=== PATIENT | male | born 1985 | race Caucasian/White ===

== ENCOUNTER 2017-01-17 12:05 | Emergency (ER) | payer BC, OTHER ==
[~2017-01-17] VITALS: Ht 188 cm; Wt 110.4 kg
[2017-01-17] MEDS ORDERED: fentaNYL PF 100 MCG/2 ML VIAL IV ONE (12:45)
[2017-01-17 13:00] VITALS: BP 170/80
[2017-01-17] MEDS ORDERED: IOHEXOL 300 MG/ML 75 ML VIAL. IV ONE (13:00)
[2017-01-17] MEDS ORDERED: IOHEXOL 240 MG/ML 50ML VIAL. PO ONE (13:00)
[2017-01-17 13:10] LABS: ALBUMIN 4.2 g/dL (3.4-5.0); ALBUMIN/GLOBULIN RATIO 1.6 (1.0-1.7); CALCIUM 8.7 mg/dL (8.5-10.1); GFR 88.3; POTASSIUM 4.1 mmol/L (3.5-5.1); TOTAL BILIRUBIN 0.5 mg/dL (0.2-1.0); TOTAL PROTEIN 6.9 g/dL (6.4-8.2)
[2017-01-17 13:22] LABS: BASO # 0.1 x10^3/uL (0.0-0.2); BASO % 1 % (0-3); EOS # 0.7 x10^3/uL (0.0-0.7); EOS % 9 % (0-3); HEMATOCRIT 44.3 % (39.0-53.0); HEMOGLOBIN 15.4 g/dL (13.0-17.5); LYMPH # 2.4 x10^3/uL (1.0-4.8); LYMPH % 29 % (24-48); MEAN CORPUSCULAR HEMOGLOBIN 31 pg (25-35); MEAN CORPUSCULAR HGB CONC 35 g/dL (31-37); MEAN CORPUSCULAR VOLUME 88 fL (79-100); MONO # 0.7 x10^3/uL (0.0-1.1); MONO % 8 % (0-9); NEUT # 4.6 x10^3uL (1.8-7.7); NEUT % 54 % (31-73); PLATELET COUNT 181 x10^3/uL (140-400); RED BLOOD COUNT 5.01 x10^6/uL (4.30-5.70); WHITE BLOOD COUNT 8.5 x10^3/uL (4.0-11.0)
--- NOTE | 2017-01-17 13:23 | PHYS DOC ---
Past History Past Medical History: Anxiety Past Surgical History: Tonsillectomy, Other Additional Smoking Information: CHEWING TOBACCO Alcohol Use: Occasionally Drug Use: None Adult General Chief Complaint Chief Complaint: GROIN PAIN HPI HPI Patient is a 31-year-old male who presents with right testicle, epididymitis, groin, and right lower quadrant pain for about 2 days. The patient saw his doctor and was prescribed antibiotics and anti-inflammatory pain relievers. The pain is not getting better, is getting worse. 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 Patient had a similar episode about 4 or 5 years ago, he was at the [facility] in [place] at that time. He was seen at the ER, they did a CT scan and some other testing. He was told he had a torn or inflamed muscle in his abdominal wall. He also had initially been prescribed antibiotics and anti- inflammatories for a possible epididymitis but that time his pain and symptoms also worsened and that's why he ended up in the ER at that time. Patient denies fever or chills. He has not had GI symptoms. His pain is getting worse and he is having trouble with doing his job due to the pain today. He drove himself here but his fiance is coming to the ED. Review of Systems Review of Systems Constitutional: Denies fever or chills [] Respiratory: Denies cough or shortness of breath [] Cardiovascular: Denies chest pain GI: As in history of present illness : Denies dysuria or hematuria [] Current Medications Current Medications Current Medications Medications (Trade) Dose Ordered Sig/Bill Start Time Stop Time Status Last Admin Dose Admin Fentanyl Citrate (Fentanyl 2ml Vial) 100 mcg 1X ONCE 01/17/17 12:45 01/17/17 12:46 DC 01/17/17 12:54 100 MCG Iohexol (Omnipaque 240 Mg/ml) 30 ml 1X ONCE 01/17/17 13:00 01/17/17 13:01 DC Iohexol (Omnipaque 300 Mg/ml) 75 ml 1X ONCE 01/17/17 13:00 01/17/17 13:01 DC Allergies Allergies Allergies Coded Allergies Type Severity Reaction Last Updated Verified No Known Drug Allergies 10/03/16 No Physical Exam Physical Exam Constitutional: Well developed, well nourished, no acute distress, non-toxic appearance. Alert, mentating normally, does appear uncomfortable when he moves around or walks. HENT: Normocephalic, atraumatic, bilateral external ears normal, nose normal. [] Eyes: conjunctiva normal, no discharge. [] Neck: Normal range of motion, no stridor. [] Abdomen: Bowel sounds normal, soft, no masses, no pulsatile masses. Right lower quadrant abdominal tenderness is present at McBurney's point. No rebound or guarding. No left lower quadrant abdominal tenderness. Mild tenderness to palpation in the right inguinal area without masses, lymphadenopathy or other abnormality. : Normal circumcised penis. Scrotum and testicles appear normal. The right testes is mildly tender to palpation, not swollen but it may be slightly more firm than the left. The right epididymis is tender to palpation but is not swollen. No increase in pain with elevation of the right testicle. Right testicle is lower than the left. No clinical evidence of epididymitis in terms of swelling or "double bubble" Skin: Warm, dry, no erythema, no rash. [] Extremities: No tenderness, no cyanosis, no clubbing, ROM intact, no edema. [] Neurologic: Alert and oriented X 3, normal motor function, normal sensory function, no focal deficits noted. [] Current Patient Data Vital Signs Vital Signs Date Time Temp Pulse Resp B/P (MAP) Pulse Ox O2 Delivery O2 Flow Rate FiO2 01/17/17 13:00 83 20 170/80 (110) 97 01/17/17 12:54 Room Air 01/17/17 12:18 97.6 EKG EKG [] Radiology/Procedures Radiology/Procedures REASON: rlq pain PROCEDURE: CT ABD PELV W/ORAL&IV CONTRAST Indication right lower quadrant pain for 2 days. Axial images through the abdomen and pelvis were obtained. Both IV and oral contrast were administered. 75 cc of Omnipaque 300 was administered intravenously. No prior imaging of the abdomen or pelvis is available. The lung bases are clear. The liver and spleen appear unremarkable and the gallbladder appears grossly normal. No adrenal or renal pathology is seen and the pancreas appears unremarkable. No mass inflammatory process or acute finding within the abdomen is seen. The appendix is seen in the right lower quadrant and is at the upper limits of normal in size but no periappendiceal stranding is seen. The mild enlargement is probably incidental. If symptoms persist and appendicitis remains strongly clinically suspect a follow-up scan may be necessary.. No acute or definite significant finding in the pelvis is seen. IMPRESSION: No definite acute finding seen in the abdomen or pelvis. Appendix at the upper limits of normal in size but no definite signs suggesting appendicitis seen. See above discussion [] Course & Med Decision Making Course & Med Decision Making Pertinent Labs and Imaging studies reviewed. (See chart for details) 31-year-old male presents with a 2 day history of right testicle, epididymitis, inguinal/groin, and right lower quadrant pain. He has no history of appendicitis , hernia surgery, or testicular surgery. He does have a history of a similar episode about 4 or 5 years ago which apparently eventually resolved, was thought to be an inflamed or torn abdominal wall muscle. It was also initially treated with antibiotics for potential epididymitis. He was started on antibiotics by his PCP for epididymitis 2 or 3 days ago but is getting worse instead of better. He has been taking NSAIDs without significant relief of the pain. I agree with the assessment of possible epididymitis and starting antibiotics, but I'm concerned that #1 he is no better, maybe symptomatically worse even after taking antibiotics, and #2 that he does not clinically have evidence of epididymitis with no swelling of his epididymis. So concerned that he has a significant amount of right lower quadrant pain and tenderness. As I explained to the patient, that is not typical for epididymitis. Although it would be uncommon, I do feel that we should rule him out for appendicitis. I recommended to the patient labs, CT scan, IV pain medicine, he is agreeable to that. Labs unremarkable. CT scan read by the radiologist. Appendix at the upper limits of normal in size but no definite sign suggesting appendicitis. Rechecked the patient. He is still having significant pain despite IV fentanyl a total of 300 mics titrated in. I am concerned that the patient has early appendicitis. I discussed the case with Dr. Cavazos, surgeon on-call. He suggested that we transfer the patient to [facility] in case he does end up needing surgery. Because the patient has already been on antibiotics that may have partially treated his appendicitis. For this reason, he suggests that we treat the patient with IV antibiotics. First dose was given here prior to transfer. I discussed this with the patient and his fiance. Patient is agreeable to transfer to [facility] as recommended. Transfer paperwork was completed. I discussed the case with Dr. upton, hospitalist at [facility], who will accept the patient for admission. [] Dragon Disclaimer Dragon Disclaimer This chart was dictated in whole or in part using Voice Recognition software in a busy, high-work load, and often noisy Emergency Department environment. It may contain unintended and wholly unrecognized errors or omissions. Departure Departure: Impression: Primary Impression: Abdominal pain, RLQ Disposition: 02 XFER SHT-TRM HOSP Condition: STABLE Referrals: PCP,NO (PCP) JHONATHAN CRUZ MD January 17, 2017 13:23
[2017-01-17] MEDS: fentaNYL PF 100 MCG/2 ML VIAL IV PRN ×4 (13:30→14:51)
--- NOTE | 2017-01-17 15:07 | RAD ---
Indication right lower quadrant pain for 2 days. Axial images through the abdomen and pelvis were obtained. Both IV and oral contrast were administered. 75 cc of Omnipaque 300 was administered intravenously. No prior imaging of the abdomen or pelvis is available. The lung bases are clear. The liver and spleen appear unremarkable and the gallbladder appears grossly normal. No adrenal or renal pathology is seen and the pancreas appears unremarkable. No mass inflammatory process or acute finding within the abdomen is seen. The appendix is seen in the right lower quadrant and is at the upper limits of normal in size but no periappendiceal stranding is seen. The mild enlargement is probably incidental. If symptoms persist and appendicitis remains strongly clinically suspect a follow-up scan may be necessary.. No acute or definite significant finding in the pelvis is seen. IMPRESSION: No definite acute finding seen in the abdomen or pelvis. Appendix at the upper limits of normal in size but no definite signs suggesting appendicitis seen. See above discussion PQRS Compliance Statement: One or more of the following individualized dose reduction techniques were utilized for this examination: 1. Automated exposure control 2. Adjustment of the mA and/or kV according to patient size 3. Use of iterative reconstruction technique
[2017-01-17] MEDS ORDERED: IV NORMAL SALINE 50ML 50 ML ONE (15:57)
[2017-01-17] MEDS ORDERED: PIPERACILLIN/TAZOBACTAM 3.375 GM VIAL IV ONE (15:57)
[2017-01-17] MEDS ORDERED: PIPERACILLIN/TAZOBACTAM 3.375 GM in IV NORMAL SALINE 50ML 50 ML IV ONE (16:15)
[2017-01-17] MEDS ORDERED: HYDROmorphone PF 1 MG/ML DISP.SYRIN IV ONE ×2 (16:30→18:00)
== END 2017-01-17 17:51 | disposition short-term general hospital (02) ==
LOC: ER 12:05
DX: R10.31 Right lower quadrant pain (principal); N45.1 Epididymitis; F17.220 Nicotine dependence, chewing tobacco, uncomplicated
CPT/HCPCS: 36415; 74177; 80053; 85027; 96374; 96375; 96376; 99285; J1170; J2543; J3010; Q9967